=== PATIENT | male | born 1980 | race Caucasian/White ===

== ENCOUNTER → 2018-11-09 14:23 | Outpatient (CLI) | payer BC, SELFPAY ==
[2018-11-09 13:37] VITALS: BMI 31.8
--- NOTE | 2018-11-09 14:26 | RAD_ITS ---
STUDY: X-RAY - PELVIS AND RIGHT HIP REASON FOR EXAM: Male, 38 years old. Worsening right hip pain. No known injury. TECHNIQUE: 3 views of the pelvis and hip. COMPARISON: None. FINDINGS: There is a non-specific bowel gas pattern. There are multiple calcified phleboliths. Normal bilateral iliac wings, sacroiliac joints and visualized sacrum. Normal bilateral superior and inferior pubic rami. Normal pubic symphysis. Normal bilateral ischial tuberosities. Normal visualized femoral head. Normal acetabulum. Normal hip joint. RAD/HIP, UNI W/ Pelvis 2-3 Views IMPRESSION: Normal x-ray examination of the pelvis and hip. Electronically Signed: Hernando Stein, at 14:48 EDT , Service support ,
== END ==
PROVIDERS: Family Provider Family Medicine; PCP Family Medicine; Referring Provider Family Medicine; Visit Provider Family Medicine
DX: M25.551 Pain in right hip (principal)
CPT/HCPCS: 73502

== ENCOUNTER 2018-12-12 18:30 | Outpatient (RCR) | payer BC, SELFPAY ==
[2018-11-09 13:37] VITALS: BMI 31.8
--- NOTE | 2018-11-22 07:39 | HP.PTEVAL ---
Patient's Visit Information CHAPIN DIAZ is a 38 year old M referred to Physical Therapy by Xander Rai DO with a diagnosis of RIGHT HIP PAIN. Date of Evaluation: 11/21/18 Physical Therapist: Julián Marcelino, PT, Cert MDT, OCS - Visit Plan Frequency: 2x /Week Duration: 4 Weeks Plan: PT INTERVNTIONS ROM/FLEXABLITY TO HIP,STRENGTHEING EX'S TO HP,MANUAL THERAPY,MODALTIES - Subjective Findings: This 38 y/o male presents to physical therapy with right pain. Pateint has had right hip pain for about 1 month ,but noticed progressive degrees ROM for example to ER to put on shows. Patient decribed as ache referrs groin to anterior thigh. Patient pain worse with crossing legs,twisting,stairs. Patient pain affects sleeping. Patient pain affect ability to golf. Sitting with rest elevate to walk is very stiff. Patient denies parathesia/tingling but occassional lateral thigh. Alleviating factors rest. Patient pain affects job demands,unable running and gait. Patient pain affects QOL. did x-rays -. SOCAIL: . 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 GAIT: normal regi. NEURO: intact. PALAPTION: unremarkable. PROM: hip flexion 105 degrees,hip abd 45 degrees,ER 65,IR 55. FLEXABILITY: hams mild tight,hip flexors mild tight,piriformis mild tight. MMT: quads/hams 4/5,hip ER/IR 4-/5,Hip abductors,hip adductors 4-/5,hip extension 4-5/, - Special Tests L/S Left Straight Leg Raise: Negative L/S Right Straight Leg Raise: Negative L/S Left Femoral Nerve Tension: Negative L/S Right Femoral Nerve Tension: Negative R Hip Scour: Negative R Hip Quadrant - Intraarticular Pathology: Negative R Hip PEACE - Intraarticular Pathology: Negative R Hip Trendelenberg - Glut Medius: Negative R Hip Trina - IT Band: Negative - Goals Goal 1:: Independant with HEP Goal Time Frame: 4-6 Weeks Goal 2:: Patient to decrease hip pain right by 60% or greater to improve function. Goal Time Frame: 4-6 Weeks Goal 3:: Patient to increase strength of hip abd/flexors by 4/5 to improve function Goal Time Frame: 4-6 Weeks Goal 4:: Patient to improve ability to golf and activity with childern with no pain. Goal Time Frame: 4-6 Weeks Goal 5:: Pateint to improve LFES score by 5 -10 points to improve QOL. Goal Time Frame: 4-6 Weeks - Rehabilitation Potential Physical Therapy Diagnosis: Patient has right hip pain with weakness abductions,flexors with tightness and decrease ROM when pain is more intense affect activities with kids ,golfing and job demnads. Rehabilitation Potential: Good - Anticipated Interventions Patient/Client Instruction: Educate patient on: Condition, Plan of Care For the Purpose of:: To decrease pain, To increase ROM, To increase tolerance to activity/condition/position, To improve ability of physical actions for home/community/work/leisure, To improve health of tissue, To decrease soft tissue restriction, To increase flexibility/ROM, To improve ability to perform tasks related to life management Therapeutic Exercise to Include: Strength training, Balance training, Flexibilty training, Passive ROM, Active ROM Comment: HIP For the Purpose of:: To decrease pain, To increase ROM, To improve muscle performance and motor function, To increase tolerance to activity/condition/position, To improve ability of physical actions for home/community/work/leisure, To improve health of tissue, To decrease soft tissue restriction, To increase flexibility/ROM, To improve ability to perform tasks related to life management Manual Therapy Techniques to Include: Mobilization Comment: HIP For the Purpose of:: To decrease pain, To increase ROM, To improve nutrient delivery to tissue, To increase oxygenation perfusion, To improve health of tissue, To decrease soft tissue restriction TENS: Yes IF ES: Yes Cryotherapy (ice pack, ice massage): Yes Thermo therapy (hot pack): Yes Ultrasound (thermal/non thermal): Yes For the Purpose of:: To decrease pain, To increase ROM, To improve nutrient delivery to tissue, To increase oxygenation perfusion, To improve health of tissue, To decrease soft tissue restriction Thank you for the opportunity to evaluate your patient. For Medicare and Medicare HMO plans, please review the plan of care and approve it. It will need to be FAXED BACK to us at [phone] for Medicare purposes. For Medicare only, by signing this I certify the plan of care. Please let me know if there are questions or concerns regarding this plan of care. Physician Signature: Date:
--- NOTE | 2019-02-16 12:29 | HP.PTDCSUM ---
HP - PT D/C Summary It has been my pleasure to treat CHAPIN DIZA under orders from Xander Rai DO, for the diagnosis of RIGHT HIP PAIN for a total of 6 visit(s). Discharge Date: 12/12/18 Please see the following information for a summary of their discharge status. - Subjective Subjective: Doing well.. - Pain Right Hip Pain Intensity (Out of 10): 0 - Overall Improvement % Improvement: 90 - Objective Objective/Function: STRENGTH HIP 5/5. PROM: WFL. NORAMLA ROMERO - Goals Goal 1:: Independant with HEP Goal Progress: Goal Met Goal 2:: Patient to decrease hip pain right by 60% or greater to improve function. Goal Progress: Goal Met Goal 3:: Patient to increase strength of hip abd/flexors by 4/5 to improve function Goal Progress: Goal Met Goal 4:: Patient to improve ability to golf and activity with childern with no pain. Goal Progress: Goal Met Goal 5:: Pateint to improve LFES score by 5 -10 points to improve QOL. Goal Progress: Goal Met - Plan Plan: D/C TO HEP - D/C Information Discharge Comments: HEP If there are questions or concerns regarding this patient's physical therapy, please feel free to call me at [phone]. Thank you for the referral of this patient. Sincerely, Julián Marcelino, PT, Cert MDT, OCS
== END 2018-12-12 19:00 | disposition home or self-care (01) ==
LOC: PT 18:30
PROVIDERS: Family Provider Family Medicine; PCP Family Medicine; Referring Provider Family Medicine; Visit Provider Family Medicine
DX: M25.551 Pain in right hip (principal); G89.29 Other chronic pain
CPT/HCPCS: 97110; 97161

== ENCOUNTER → 2019-04-21 15:56 | Outpatient (CLI) | payer BC, SELFPAY ==
[2019-04-21 15:16] VITALS: BMI 32.4
--- NOTE | 2019-04-21 15:58 | EKG12_ITS ---
Test Reason : PAIN/TENDERNESS Blood Pressure : / mmHG Vent. Rate : 062 BPM Atrial Rate : 062 BPM P-R Int : 156 ms QRS Dur : 120 ms QT Int : 408 ms P-R-T Axes : 060 010 041 degrees QTc Int : 414 ms Normal sinus rhythm RSR' or QR pattern in V1 suggests right ventricular conduction delay Borderline ECG Confirmed by HUGO LONG, RICHARD ([id number]), legal editor ELLE WHITE ([id number]) on 04/24/2019 1:27:34 PM Referred By: Brian Lee Confirmed By:RICHARD ARIAS MD
== END ==
PROVIDERS: Family Provider Family Medicine; PCP Family Medicine; Referring Provider Nurse Practitioner Family; Visit Provider Nurse Practitioner Family
DX: R07.9 Chest pain, unspecified (principal)
CPT/HCPCS: 93005

== ENCOUNTER → 2019-05-05 08:07 | Outpatient (CLI) | payer BC, SELFPAY ==
[2019-05-05 07:39] VITALS: BMI 32.4
[2019-05-05 10:03] LABS: Absolute Lymphocyte Count 2.46 X10^3/uL (0.83-4.51); Absolute Neutrophil Count 3.5 X10^3/uL (2.0-7.7); Basophil# 0.04 X10^3/uL; Basophil% 0.6 % (0-1); Eosinophil# 0.18 X10^3/uL; Eosinophils% 2.6 % (0-5); Hematocrit 46.4 % (40-54); Hemoglobin 15.7 g/dL (13.0-16.5); Lymphocyte # 2.46 X10^3/ul (4.0); Lymphocyte % 34.9 % (19-41); Mean Corp Hgb Conc 33.8 g/dL (32-36); Mean Corpuscular Hgb 30.8 pg (27.0-32.0); Mean Platelet Vol. 10.7 fl (6.2-12.0); Monocyte% 11.4 % (0-10); NRBC Flagged by Analyzer 0 % (0-5); Neutrophil # 3.53 X10^3/uL (2.7-7.7); Neutrophil % 50.1 % (47-70); Platelet Count 245 K/mm3 (150-450); RBC Distribution Width CV 12.7 % (11.6-14.6); RBC Distribution Width SD 42.3 fl (35.1-43.9)
[2019-05-05 10:28] LABS: ALB/GLOB Ratio 1.2 RATIO (0.9-2.4); AST(SGOT) 26 U/L (15-37); Alanine Aminotransfer ALT/SGPT 49 U/L (16-61); Albumin, Serum 3.9 g/dL (3.2-5.0); Alkaline Phosphatase 56 U/L (45-117); Anion Gap 6 (5-15); BUN 16 mg/dL (7-18); BUN/Creat Ratio 13.2 RATIO (10-20); Calcium,Total 8.9 mg/dL (8.5-10.1); Chloride 106 mmol/L (98-107); Cholesterol 231 mg/dL (200); Creatinine, Serum 1.21 mg/dL (0.70-1.30); EST Glomerular Filtration Rate 70 mL/min (>60); Est Glom Filt Rate - Afr Amer 85 mL/min (>60); Globulin 3.3 g/dL (2.2-4.2); Glucose 97 mg/dL (74-106); High Density Lipoprotein 35 mg/dL; Potassium 4.2 mmol/L (3.5-5.1); Protein, Total 7.2 g/dL (6.4-8.2); Sodium Level 140 mmol/L (136-145); Thyroid Stim Hormone (TSH) 2.01 uIU/mL (0.358-3.74); Triglycerides 251 mg/dL; Very Low Density Lipoprotein 50 mg/dL (5-40)
== END ==
PROVIDERS: Family Provider Family Medicine; PCP Family Medicine; Referring Provider Nurse Practitioner Family; Visit Provider Nurse Practitioner Family
DX: Z00.00 Encounter for general adult medical examination without abnormal findings (principal)
CPT/HCPCS: 36415; 80053; 80061; 84443; 85025

== ENCOUNTER → 2020-05-13 | Outpatient (CLI) | payer BC, SELFPAY ==
[2019-05-05 07:39] VITALS: BMI 32.4
== END | disposition home or self-care (01) ==
LOC: LABSPEC 14:40
PROVIDERS: PCP Family Medicine; Referring Provider Internal Medicine; Visit Provider Internal Medicine
DX: M79.10 Myalgia, unspecified site (principal); R68.83 Chills (without fever)
CPT/HCPCS: 87506; 87635; U0005; U0003

== ENCOUNTER 2020-10-21 19:09 | Emergency (ER) | payer BC, SELFPAY ==
[2019-05-05 07:39] VITALS: BMI 32.4
[2020-10-21 19:10] VITALS: BP 134/73; PULSE 66; RESP 18; TEMP 36.6; O2SAT 99; BMI 32.3
[2020-10-21 19:23] LABS: Red Blood Cells-Urine 0 SEEN /hpf (0-5); White Blood Cells 0 SEEN /hpf (0-5)
[2020-10-21 19:24] LABS: Bacteria 0 SEEN /hpf (None Seen); Mucous, Urine 0 SEEN /hpf (<or=2+)
[2020-10-21 19:25] LABS: Color, Urine Yellow (Yellow); Glucose, Dipstick Normal (Normal); Ketone-Dipstick Negative (Negative); Leukocyte Esterase-Dipstick Negative /ul (Negative); Nitrite-Dipstick Negative (Negative); Occult Blood-Urine Negative /ul (Negative); Protein-Dipstick Negative (Negative); Urine Bilirubin Dipstick Negative (Negative); Urine Clarity Clear (Clear); Urine Urobilinogen Normal (Normal)
[2020-10-21 19:34] LABS: Squamous Epithelial Cells - UA 0-5 SEEN /hpf (0-5)
[2020-10-21 20:36] LABS: Absolute Lymphocyte Count 2.51 X10^3/uL (0.83-4.51); Absolute Neutrophil Count 5.2 X10^3/uL (2.0-7.7); Basophil# 0.05 X10^3/uL; Basophil% 0.6 % (0-1); Eosinophil# 0.13 X10^3/uL; Eosinophils% 1.5 % (0-5); Hematocrit 47.3 % (40-54); Lymphocyte # 2.51 X10^3/ul (0.83-4.51); Lymphocyte % 29.2 % (19-41); Mean Corp Hgb Conc 33.8 g/dL (32-36); Mean Corpuscular Hgb 30.7 pg (27.0-32.0); Mean Corpuscular Volume 90.6 fL (80-94); Mean Platelet Vol. 10.3 fl (6.2-12.0); Monocyte# 0.72 X10^3/uL; Monocyte% 8.4 % (0-10); NRBC Flagged by Analyzer 0 % (0-5); Neutrophil # 5.17 X10^3/uL (2.7-7.7); Platelet Count 279 K/mm3 (150-450); RBC Distribution Width CV 12.7 % (11.6-14.6); RBC Distribution Width SD 41.9 fl (35.1-43.9); Red Blood Count 5.22 M/mm3 (4.6-6.2); White Blood Count 8.6 K/mm3 (4.4-11.0)
[2020-10-21 20:48] LABS: Anion Gap 8 (5-15); BUN 12 mg/dL (7-18); BUN/Creat Ratio 10.8 RATIO (10-20); Calcium,Total 9.1 mg/dL (8.5-10.1); Chloride 103 mmol/L (98-107); Creatinine, Serum 1.11 mg/dL (0.70-1.30); EST Glomerular Filtration Rate 77 mL/min (>60); Est Glom Filt Rate - Afr Amer 93 mL/min (>60); Estimated Creatinine Clearance 89.51 ml/min; Glucose 91 mg/dL (74-106); Sodium Level 140 mmol/L (136-145)
--- NOTE | 2020-10-21 20:51 | CT_ITS ---
INDICATION: lower abd pain x 7 days EXAMINATION: CT Abdomen And Pelvis W/O Contrast Injection TECHNIQUE: Helically acquired images were obtained of the abdomen and pelvis without the use of IV contrast. A radiation dose optimization technique was used for this scan. Oral contrast: None. COMPARISON: None FINDINGS: Evaluation of the solid organs and vascular structures is limited without intravenous contrast. Visualized lung bases: Unremarkable Liver: Diffusely hypodense consistent with fatty liver. Gallbladder: Unremarkable Spleen: Unremarkable Pancreas: Unremarkable Adrenal Glands: Unremarkable Kidneys: Unremarkable Vasculature: Unremarkable GI Tract: Scattered diverticula throughout the colon without evidence of inflammation. Submucosal fat infiltration of the colon. Lymphadenopathy: None Peritoneum: No ascites. Bladder: Unremarkable Reproductive organs: Unremarkable Bones/Soft tissues: Bilateral L5-S1 pars defects with grade 1 anterolisthesis L5 on S1. CT/Abdomen/Pelvis without Cont IMPRESSION: No acute abnormalities in the abdomen or pelvis. Submucosal fat infiltration of the colon is indicative of chronic inflammatory bowel disease. Diverticulosis. Fatty liver. Bilateral L5-S1 pars defects with grade 1 anterolisthesis L5 on S1. Electronically Signed: Oliverio Sanchez MD at 21:56 EDT Tel , Service support ,
--- NOTE | 2020-10-21 20:51 | EX.ED.DYSGE1 ---
HPI History of Present Illness Chief Complaint: Abd Pain Informant: patient Narrative Narrative: Presents persistent lower abdominal pain for the past 7 days. Started on the right side radiates across to his left side. States last couple days pain more at night and will awaken him feeling achy sensations. Today had a bowel movement had increasing pain and nausea. States there is nonbloody stools. He has daily bowel movements. No abdominal surgery history. He is on medication for anxiety. He made appointment with his PCP this coming however due to the increased discomfort today came for evaluation. No allergies. He went to urgent care, sent for rule out appendicitis. Did report start working out again 3 weeks ago has been doing abdominal workouts and felt it was secondary to this and has been monitoring it. No fevers. No urinary symptoms. Patient reports EGD colonoscopy in the past reporting hiatal hernia. Prior similar symptoms: No PFSH PFSH Medical History (Updated 10/21/20 @ 22:[address] Beto Prabhakar DO) Anxiety Bone fracture Frequent headaches Seasonal allergies Vision problems Home Medications citalopram 20 mg tablet See Rx Instructions .ROUTE .COMPLEX #90 tab 05/28/20 [Rx Last Taken Unknown] Allergy/AdvReac Type Severity Reaction Status Date / Time No Known Allergies Allergy Verified 10/21/20 19:12 Family History Uncle Alcoholism Mother Anxiety Blood clot in vein High cholesterol Hypertension Father Anxiety Respiratory disease Hypertension High cholesterol Grandfather Heart disease Grandmother Colon cancer Surgical History History of hand surgery Social History Smoking Status: Never smoker alcohol intake: current alcohol intake frequency: a few times a week substance use type: does not use what type of physical activity do you participate in: bicycling and other details: Jogging ROS ROS ED Constitutional Constitutional ED: Denies chills, fever(s) or sweats Eyes Eyes: Denies change in vision ENT ENT ED: Denies dysphagia or sore throat Cardiovascular Cardiovascular: Denies chest pain, leg edema, palpitations or racing heartbeat Respiratory/Chest Respiratory/Chest: Denies cough, dyspnea or dyspnea on exertion Gastrointestinal Gastrointestinal: Reports abdominal pain; Denies diarrhea, nausea or vomiting Genitourinary Genitourinary ED: Denies dysuria, hematuria or urinary frequency Musculoskeletal Musculoskeletal: Denies back pain, extremity pain or neck pain Integumentary Denies rash or wounds Neurologic Neurologic: Denies headache(s), paresthesias or weakness EXAM Physical Exam Const Vital Signs: 10/21/20 19:10 Temperature 97.8 F Temperature Source Temporal Pulse Rate 66 Respiratory Rate 18 Blood Pressure 134/73 H Blood Pressure Mean 93 Pulse Ox 99 Oxygen Delivery Method Room Air Positive well nourished and well developed General Appearance ED: well developed and NAD HEENT Reports moist mucous membranes normocephalic and atraumatic Eyes PERRL, EOMs intact bilaterally and conjunctivae normal General Eye ED: Yes normal appearance of both eyes Neck no lymphadenopathy and supple General: Negative for tenderness Chest Wall Chest: Negative for tenderness Resp normal respiratory effort and normal air movement Effort and Inspection: symmetric chest movement; Negative for respiratory distress Cardio regular rate, regular rhythm and no murmurs Peripheral Pulses: pulses 2+ throughout GI normal to inspection, nondistended, normoactive bowel sounds GI Narrative: Tender palpation right lower quadrant suprapubic, no guarding or rebound. Small umbilical hernia tender to palpation. No cyanosis in that region. Negative Rovsing's. Palpation: Negative for guarding or rebound tenderness present Back/Spine no CVA tenderness and no thoracic nor lumbar tenderness Extremity normal to inspection General Extremety ED: Negative for edema or tenderness General Extremity: Negative for edema Neuro oriented x3 and no sensory deficits noted Sensorium / Orientation: awake and alert Skin no rashes or lesions noted and no wounds MDM MDM MDM Narrative Medical decision making narrative: Patient lab work obtained in triage normal urine negative. Tender lower quadrants, Noncon CT scan reports no acute findings, there is chronic inflammatory bowel findings from submucosa fatty infiltration. States he is to have chronic recurrent lower abdominal pain in the past. Reevaluation's abdomen is soft. He declines any pain medicines. Discussed with his chronic findings of bowel inflammation to avoid NSAIDs. Use Tylenol. Strict return precautions. All questions answered. Lab Data Attestation: I reviewed the patient's lab results. Labs: Laboratory Results - last 24 hr 10/21/20 10/21/20 10/21/20 19:18 20:28 20:28 WBC 8.6 RBC 5.22 Hgb 16.0 Hct 47.3 MCV 90.6 MCH 30.7 MCHC 33.8 RDW Std Deviation 41.9 RDW Coeff of [place] 12.7 Plt Count 279 MPV 10.3 Immature Gran % (Auto) 0.300 Neut % (Auto) 60.0 Lymph % (Auto) 29.2 [place] % (Auto) 8.4 Eos % (Auto) 1.5 Baso % (Auto) 0.6 Absolute Neuts (auto) 5.2 Absolute Lymphs (auto) 2.51 Nucleated RBC % 0 Sodium 140 Potassium 4.0 Chloride 103 Carbon Dioxide 29.0 Anion Gap 8 BUN 12 Creatinine 1.11 Estim Creat Clear Calc 89.51 Est GFR (MDRD) Af Amer 93 Est GFR (MDRD) Non-Af 77 BUN/Creatinine Ratio 10.8 Glucose 91 Calcium 9.1 Urine Color Yellow Urine Clarity Clear Urine pH 6.0 Ur Specific [place] 1.010 Urine Protein Negative Urine Glucose (UA) Normal Urine Ketones Negative Urine Occult Blood Negative Urine Nitrite Negative Urine Bilirubin Negative Urine Urobilinogen Normal Ur Leukocyte Esterase Negative Urine RBC 0 SEEN Urine WBC 0 SEEN Ur Squamous Epith Cells 0-5 SEEN Urine Bacteria 0 SEEN Urine Mucus 0 SEEN Radiography Diagnostic Testing: Radiology Impression Abdomen/Pelvis CT 10/21/20 20:51 IMPRESSION: No acute abnormalities in the abdomen or pelvis. Submucosal fat infiltration of the colon is indicative of chronic inflammatory bowel disease. Diverticulosis. Fatty liver. Bilateral L5-S1 pars defects with grade 1 anterolisthesis L5 on S1. Electronically Signed: Oliverio Sanchez MD at 21:56 EDT Tel , Service support , Discharge Plan Triage Chief Complaint: Abd Pain ED Provider: Beto Prabhakar Dx/Rx/DC Orders Clinical Impression: Abdominal pain Instructions: ED Unknown Causes of Abdominal ... Prescriptions: No Action citalopram 20 mg tablet See Rx Instructions .ROUTE .COMPLEX Qty: 90 RF: 3 Primary Care Provider: Xander Rai Referrals: Xander Rai, DO [Primary Care Provider] - 3-5 Days if not improving Disposition Disposition: Home, self care
[2020-10-21 22:19] VITALS: BP 128/60; PULSE 61; RESP 16; O2SAT 100
== END 2020-10-21 22:20 | disposition home or self-care (01) ==
PROVIDERS: Emergency Provider Emergency Medicine; PCP Family Medicine
DX: R10.30 Lower abdominal pain, unspecified (principal); Z79.899 Other long term (current) drug therapy
CPT/HCPCS: 74176; 80048; 81001; 85025; 99283; A4216

== ENCOUNTER 2021-07-15 09:05 | Outpatient (CLI) | payer BC, SELFPAY ==
[2021-07-15 12:04] LABS: Absolute Lymphocyte Count 2.36 X10^3/uL (0.83-4.51); Absolute Neutrophil Count 4.8 X10^3/uL (2.0-7.7); Basophil# 0.05 X10^3/uL; Basophil% 0.6 % (0-1); Eosinophil# 0.16 X10^3/uL; Eosinophils% 1.9 % (0-5); Hematocrit 47.8 % (40-54); Hemoglobin 16.1 g/dL (13.0-16.5); Lymphocyte # 2.36 X10^3/ul (0.83-4.51); Lymphocyte % 28.6 % (19-41); Mean Corp Hgb Conc 33.7 g/dL (32-36); Mean Corpuscular Hgb 30.8 pg (27.0-32.0); Mean Corpuscular Volume 91.6 fL (80-94); Mean Platelet Vol. 10.8 fl (6.2-12.0); Monocyte% 9.7 % (0-10); NRBC Flagged by Analyzer 0 % (0-5); Neutrophil # 4.83 X10^3/uL (2.7-7.7); Neutrophil % 58.7 % (47-70); Platelet Count 273 K/mm3 (150-450); RBC Distribution Width SD 43.8 fl (35.1-43.9); Red Blood Count 5.22 M/mm3 (4.6-6.2); White Blood Count 8.2 K/mm3 (4.4-11.0)
[2021-07-15 12:43] LABS: ALB/GLOB Ratio 1.1 RATIO (0.9-2.4); AST(SGOT) 48 U/L (15-37); Alanine Aminotransfer ALT/SGPT 80 U/L (16-61); Alkaline Phosphatase 57 U/L (45-117); Anion Gap 4 (5-15); BUN 13 mg/dL (7-18); BUN/Creat Ratio 10.3 RATIO (10-20); Calcium,Total 9.2 mg/dL (8.5-10.1); Chloride 102 mmol/L (98-107); Creatinine, Serum 1.26 mg/dL (0.70-1.30); EST Glomerular Filtration Rate 66 mL/min (>60); Est Glom Filt Rate - Afr Amer 80 mL/min (>60); Globulin 3.5 g/dL (2.2-4.2); Glucose 102 mg/dL (74-106); Potassium 4.4 mmol/L (3.5-5.1); Protein, Total 7.5 g/dL (6.4-8.2); Sodium Level 137 mmol/L (136-145); T4 Free Direct 1.02 ng/dL (0.76-1.46); Thyroid Stim Hormone (TSH) 2.27 uIU/mL (0.358-3.74)
== END 2021-07-15 23:59 | disposition home or self-care (01) ==
LOC: BIMLAB 09:06
PROVIDERS: PCP Family Medicine; Referring Provider Physician Assistant; Visit Provider Physician Assistant
DX: R03.0 Elevated blood-pressure reading, without diagnosis of hypertension (principal); R00.2 Palpitations; R10.9 Unspecified abdominal pain; F41.9 Anxiety disorder, unspecified
CPT/HCPCS: 36415; 80053; 84439; 84443; 85025

== ENCOUNTER 2021-07-21 09:22 | Outpatient (CLI) | payer BC, SELFPAY | END 2021-07-21 23:59 | disposition home or self-care (01) | LOC: PSN 09:22 | PROVIDERS: PCP Family Medicine; Referring Provider Physician Assistant; Visit Provider Physician Assistant | DX: R00.2 Palpitations (principal); R03.0 Elevated blood-pressure reading, without diagnosis of hypertension | CPT/HCPCS: 93225; 93226 ==

== ENCOUNTER 2021-07-23 09:56 | Emergency (ER) | payer BC, SELFPAY ==
[2021-07-23 09:57] VITALS: BP 143/104; PULSE 78; RESP 14; TEMP 36.8; O2SAT 98; BMI 32.8
--- NOTE | 2021-07-23 10:23 | CT_ITS ---
STUDY: CT ABDOMEN AND PELVIS WITHOUT CONTRAST REASON FOR EXAM: Male, 41 years old. Sudden severe upper abdominal pain. RADIATION DOSAGE (If Supplied By Facility): CTDIvol = ( 11.24 ) mGy, DLP = ( 629.21 ) mGycm TECHNIQUE: Transaxial images were obtained from the dome of the diaphragm to the symphysis pubis without oral contrast, and without intravenous contrast. Sagittal and coronal images were reconstructed. Individualized dose optimization techniques were used for this CT. COMPARISON: Comparison is made with prior study dated 10/21/2020. FINDINGS: Stable mild increased markings in the anterior medial aspect of the right middle lobe suggestive of scarring. Coronary artery calcification. There is decreased attenuation of the liver consistent with steatosis. Normal gallbladder and extrahepatic biliary system. Normal spleen. Normal pancreas. Normal bilateral adrenal glands. Normal right kidney. Normal left kidney. Normal visualized stomach. Normal small intestine. Normal colon. The appendix is visualized and appears normal. Normal abdominal aorta. Normal inferior vena cava. There is borderline retroperitoneal lymphadenopathy with enlarged nodes no greater than 10mm in the short axis diameter. Normal urinary bladder. There are prostatic calcifications. There is a small umbilical hernia containing fat. Small bilateral inguinal hernias containing fat. Minimal anterior listhesis of L5 on S1 with spondylolysis of the pars interarticularis of the L5 vertebrae. CT/Abdomen/Pelvis without Cont IMPRESSION: Fatty infiltration of the liver. Electronically Signed: Hernando Stein MD at 11:11 EDT ,
--- NOTE | 2021-07-23 10:23 | EKG12_ITS ---
Test Reason : CP Blood Pressure : / mmHG Vent. Rate : 060 BPM Atrial Rate : 060 BPM P-R Int : 152 ms QRS Dur : 122 ms QT Int : 408 ms P-R-T Axes : 057 023 026 degrees QTc Int : 408 ms Normal sinus rhythm Normal ECG Confirmed by GENIE LONG, GIANNI ([id number]), fashion editor REJI KAYE ([id number]) on 07/25/2021 8:42:47 AM Referred By: RU Confirmed By:GIANNI PRESCOTT MD
--- NOTE | 2021-07-23 10:32 | EX.ED.DYSGE1 ---
HPI History of Present Illness Chief Complaint: Chest Other Detail of Chief Complaint: Epigastric pain Informant: patient Onset/Context/Timing Onset: Days Context: Gradual Onset Timing: Waxes and wanes Narrative Narrative: Patient presents with 1 week history of epigastric pain. About a week and a half ago he was seen by PCP secondary to some palpitations. Several days later he was throwing a baseball to his son and noted pain to the epigastric region along with increased reflux. He reports going to see Dr. Ortiz this morning who wanted him evaluated with a troponin to rule out heart attack. Patient's primary concern is for hiatal hernia or twisting of his stomach. Patient did just turn in his Holter monitor that he had been given but does not have results back. [facility] Medical History (Updated 07/23/21 @ 12:[address] Sonya Hutchinson MD) Anxiety Bone fracture Frequent headaches Seasonal allergies Vision problems Home Medications blood pressure monitor #1 ea 07/15/21 [Rx Last Taken Unknown] citalopram 40 mg tablet 40 mg .ROUTE DAILY #30 tab 07/21/21 [Rx Last Taken Unknown] hydroxyzine HCl 25 mg tablet 25 mg PO BID PRN #14 tab 07/21/21 [Rx Last Taken Unknown] omeprazole magnesium [Prilosec OTC] 20 mg PO DAILY 07/23/21 [History Last Taken Unknown] Allergy/AdvReac Type Severity Reaction Status Date / Time No Known Allergies Allergy Verified 07/21/21 09:59 Family History Uncle Alcoholism Mother Anxiety Blood clot in vein High cholesterol Hypertension Father Anxiety Respiratory disease Hypertension High cholesterol Grandfather Heart disease Grandmother Colon cancer Surgical History History of hand surgery Social History Smoking Status: Never smoker alcohol intake: current alcohol intake frequency: a few times a week substance use type: does not use what type of physical activity do you participate in: bicycling and other details: Jogging ROS ROS ED Constitutional Constitutional ED: Denies chills or fever(s) Eyes Eyes: Denies change in vision ENT ENT ED: Denies sore throat Cardiovascular Cardiovascular: Reports other Details: Reflux sensation in chest ; Denies chest pain Respiratory/Chest Respiratory/Chest: Denies cough or dyspnea Gastrointestinal Gastrointestinal: Reports abdominal pain; Denies nausea or vomiting Genitourinary Genitourinary ED: Denies dysuria Musculoskeletal Musculoskeletal: Denies back pain or neck pain Integumentary Denies rash Neurologic Neurologic: Denies headache(s) or weakness Allergic/Immunologic Allergic/Immunologic ED: Denies urticaria EXAM Physical Exam Const Vital Signs: 07/23/21 09:57 07/23/21 10:13 Temperature 98.2 F Temperature Source Temporal Pulse Rate 78 Respiratory Rate 14 Respiratory Pattern Normal Blood Pressure 143/104 H Blood Pressure Mean 117 Pulse Ox 98 Oxygen Delivery Method Room Air Positive well nourished and well developed General Appearance ED: well developed HEENT Reports moist mucous membranes Eyes PERRL and EOMs intact bilaterally Neck supple Chest Wall inspection of chest normal and palpation of chest normal Resp normal respiratory effort and clear to auscultation bilaterally Cardio regular rate and regular rhythm GI normal to inspection, nondistended, normoactive bowel sounds and non-tender Palpation: soft Extremity normal to inspection Neuro oriented x3 Sensorium / Orientation: alert Psych mental status grossly normal Skin no rashes or lesions noted MDM MDM MDM Narrative Medical decision making narrative: EKG and lab work obtained. CT scan of the flank ordered. Lab Data Attestation: I reviewed the patient's lab results. Labs: Laboratory Results - last 24 hr 07/23/21 07/23/21 10:35 10:35 WBC 7.8 RBC 5.33 Hgb 16.5 Hct 48.1 MCV 90.2 MCH 31.0 MCHC 34.3 RDW Std Deviation 41.8 RDW Coeff of [place] 12.7 Plt Count 279 MPV 10.4 Immature Gran % (Auto) 0.400 Neut % (Auto) 67.8 Lymph % (Auto) 22.3 [place] % (Auto) 8.3 Eos % (Auto) 0.8 Baso % (Auto) 0.4 Absolute Neuts (auto) 5.3 Absolute Lymphs (auto) 1.74 Nucleated RBC % 0 Sodium 137 Potassium 4.3 Chloride 102 Carbon Dioxide 28.0 Anion Gap 7 BUN 12 Creatinine 1.33 H Estim Creat Clear Calc 73.95 Est GFR (MDRD) Af Amer 75 Est GFR (MDRD) Non-Af 62 BUN/Creatinine Ratio 9.0 L Glucose 100 Calcium 8.8 Total Bilirubin 0.80 Direct Bilirubin 0.13 AST 50 H ALT 74 H Alkaline Phosphatase 62 Troponin I High Sens 5 Total Protein 7.9 Albumin 4.3 Globulin 3.6 Lipase 173 Radiography Diagnostic Testing: Clinical Impression(s) from Imaging Studies Abdomen/Pelvis CT 07/23/21 10:23 IMPRESSION: Fatty infiltration of the liver. Electronically Signed: Hernando Stein MD at 11:11 EDT , EKG Initial EKG: Attestation: I personally reviewed and interpreted this EKG as follows: Interpretation: Sinus Rhythm (Sinus at 60 bpm with no acute ischemia.) Treatment and Re-Evaluation Narrative: On repeat evaluation patient resting comfortably. Test results discussed with him. Lab work is normal including normal troponin. ALT and AST slightly elevated but not significantly changed from recent blood work. CT flank reveals normal stomach with no evidence of hiatal hernia. No acute findings noted. Patient is reassured with these findings and will continue his Prilosec. Discharge Plan Triage Chief Complaint: Chest Other ED Provider: Sonya Hutchinson Dx/Rx/DC Orders Clinical Impression: Abdominal pain, epigastric, Gastroesophageal reflux disease Instructions: ED GERD (Adult) Prescriptions: No Action (DME) blood pressure monitor Kit See Rx Instructions .ROUTE .MEDSUPPLY Qty: 1 RF: 0 citalopram 40 mg tablet 40 mg .ROUTE DAILY Qty: 30 RF: 2 hydroxyzine HCl 25 mg tablet 25 mg PO BID PRN (Reason: anxiety) Qty: 14 RF: 0 omeprazole magnesium [Prilosec OTC] 20 mg Tablet,Delayed Release (Dr/Ec) 20 mg PO DAILY RF: 0 Primary Care Provider: Xander Rai Referrals: Xander Rai, [Primary Care Provider] - 1-2 Weeks Disposition Disposition: Home, Self Care
[2021-07-23 10:48] LABS: Absolute Lymphocyte Count 1.74 X10^3/uL (0.83-4.51); Absolute Neutrophil Count 5.3 X10^3/uL (2.0-7.7); Basophil# 0.03 X10^3/uL; Basophil% 0.4 % (0-1); Eosinophil# 0.06 X10^3/uL; Eosinophils% 0.8 % (0-5); Hematocrit 48.1 % (40-54); Hemoglobin 16.5 g/dL (13.0-16.5); Lymphocyte # 1.74 X10^3/ul (0.83-4.51); Lymphocyte % 22.3 % (19-41); Mean Corp Hgb Conc 34.3 g/dL (32-36); Mean Corpuscular Volume 90.2 fL (80-94); Mean Platelet Vol. 10.4 fl (6.2-12.0); Monocyte# 0.65 X10^3/uL; Monocyte% 8.3 % (0-10); NRBC Flagged by Analyzer 0 % (0-5); Neutrophil % 67.8 % (47-70); Platelet Count 279 K/mm3 (150-450); RBC Distribution Width CV 12.7 % (11.6-14.6); RBC Distribution Width SD 41.8 fl (35.1-43.9); Red Blood Count 5.33 M/mm3 (4.6-6.2); White Blood Count 7.8 K/mm3 (4.4-11.0)
[2021-07-23 11:16] LABS: AST(SGOT) 50 U/L (15-37); Alanine Aminotransfer ALT/SGPT 74 U/L (16-61); Albumin, Serum 4.3 g/dL (3.2-5.0); Alkaline Phosphatase 62 U/L (45-117); Anion Gap 7 (5-15); BUN 12 mg/dL (7-18); Bilirubin, Direct 0.13 mg/dL (0.00-0.30); Calcium,Total 8.8 mg/dL (8.5-10.1); Chloride 102 mmol/L (98-107); Creatinine, Serum 1.33 mg/dL (0.70-1.30); EST Glomerular Filtration Rate 62 mL/min (>60); Est Glom Filt Rate - Afr Amer 75 mL/min (>60); Estimated Creatinine Clearance 73.95 ml/min; Globulin 3.6 g/dL (2.2-4.2); Glucose 100 mg/dL (74-106); Lipase 173 U/L (73-393); Potassium 4.3 mmol/L (3.5-5.1); Protein, Total 7.9 g/dL (6.4-8.2); Sodium Level 137 mmol/L (136-145); Troponin-I HS 5 pg/mL (3.0-78.0)
[2021-07-23 12:07] VITALS: BP 139/97; PULSE 81; RESP 16; O2SAT 99
== END 2021-07-23 12:07 | disposition home or self-care (01) ==
PROVIDERS: Emergency Provider Emergency Medicine; PCP Family Medicine; Visit Provider Emergency Medicine
DX: K21.9 Gastro-esophageal reflux disease without esophagitis (principal); F41.9 Anxiety disorder, unspecified; Z79.899 Other long term (current) drug therapy
CPT/HCPCS: 74176; 80048; 80076; 83690; 84484; 85025; 93005; 99283; A4216

== ENCOUNTER 2021-07-31 09:17 | Outpatient (CLI) | payer BC, SELFPAY | END 2021-07-31 23:59 | disposition home or self-care (01) | PROVIDERS: PCP Family Medicine; Visit Provider Physician Assistant | DX: G47.10 Hypersomnia, unspecified (principal) | CPT/HCPCS: 95806 ==

== ENCOUNTER → 2021-08-26 | Outpatient (CLI) | payer BC, SELFPAY ==
[2021-08-26 15:49] LABS: International Normalized Ratio 1.1; Prothrombin Time (Protime)PT. 13.6 SECONDS (11.7-14.9)
[2021-08-26 15:56] LABS: Erythrocyte Sedimentation Rate 4 mm/hr (0-20)
[2021-08-26 16:12] LABS: CRP 5.26 mg/L (0.0-3.0)
== END | disposition home or self-care (01) ==
LOC: LAB 13:48
PROVIDERS: PCP Family Medicine; Referring Provider Nurse Practitioner Adult Health; Visit Provider Nurse Practitioner Adult Health
DX: K76.0 Fatty (change of) liver, not elsewhere classified (principal)
CPT/HCPCS: 36415; 85610; 85652; 86140

== ENCOUNTER → 2021-08-27 | Outpatient (CLI) | payer BC, SELFPAY ==
[2021-08-27 15:45] LABS: Hemoglobin A1c 5.3 % (3.8-5.6)
[2021-08-27 16:05] LABS: Ferritin 184 ng/mL (26-388); LDH 240 U/L (87-241)
[2021-08-27 16:15] LABS: HIV - WCH Non-Reactive (Nonreactive)
[2021-08-29 14:09] LABS: Anti-Centromere B Ab <0.2 AI (0.0-0.9); Anti-Chromatin <0.2 AI (0.0-0.9); Anti-Jo <0.2 AI (0.0-0.9); Anti-Scleroderma-70 AB <0.2 AI (0.0-0.9); RNP Ab <0.2 AI (0.0-0.9); SJOGREN'S Anti-SS-A test < 0.2 AI (0.0-0.9); SJOGREN'S Anti-SS-B test < 0.2 AI (0.0-0.9); Smith Ab <0.2 AI (0.0-0.9)
[2021-08-29 18:09] LABS: Anti-Mitochondrial AB <20.0 Units (0.0-20.0); Anti-dsDNA Ab <1 IU/mL (0-9)
[2021-08-31 19:07] LABS: Angiotensin Convert Enzyme 31 U/L (14-82); Ceruloplasmin 23.7 mg/dL (16.0-31.0); Cytoplasmic Ab (C-ANCA) <1:20 titer (Neg:<1:20); HEPATITIS B SURFACE AG Negative (Negative); Hepatitis A IgM Antibody Negative (Negative); Hepatitis B Core AB IgM Negative (Negative)
[2021-08-31 20:43] LABS: AFP, Tumor Marker 1.6 ng/mL (0.0-6.9); Anti-Smooth Muscle ABS 4 Units (0-19); Copper, Serum or Plasma 114 ug/dL (69-132); Haptoglobin 105 mg/dL (23-355); Hep C Antibodies <0.1 s/co ratio (0.0-0.9); Perinuclear Ab (P-ANCA) <1:20 titer (Neg:<1:20)
== END | disposition home or self-care (01) ==
LOC: LAB 14:35
PROVIDERS: PCP Family Medicine; Referring Provider Nurse Practitioner Adult Health; Visit Provider Nurse Practitioner Adult Health
DX: K76.0 Fatty (change of) liver, not elsewhere classified (principal)
CPT/HCPCS: 36415; 80074; 82105; 82140; 82164; 82390; 82525; 82728; 83010; 83036; 83516; 83615; 86225; 86235; 86256; 86703

== ENCOUNTER → 2021-09-11 | Outpatient (CLI) | payer BC, SELFPAY ==
--- NOTE | 2021-09-11 09:43 | US_ITS ---
STUDY: ABDOMINAL ULTRASOUND - ELASTOGRAPHY REASON FOR VISIT: Male, 41 years old. Fatty infiltration of the liver. Elevated liver function tests. TECHNIQUE: Liver stiffness measurements were obtained on a [employer] RS 85 ultrasound machine using a CA 1-7 probe following the SRU guidelines. 3 measurements were obtained using a 2-D-SWE method. The IQR/M was 16% suggesting a quality data set. TECHNICAL QUALITY: Adequate. COMPARISON: Comparison is made with prior study done earlier today. FINDINGS: Liver: Diffuse fatty infiltration of the liver. Median liver stiffness measured 9 kPa. US/Elastography Parenchyma/Organ IMPRESSION: Liver stiffness measures 9 kPa compatible with F2-F3 (Mild to moderate liver fibrosis) Metavir score. Electronically Signed: Hernando Stein MD at 10:36 EDT ,
--- NOTE | 2021-09-11 09:44 | US_ITS ---
STUDY: ABDOMINAL ULTRASOUND - RIGHT UPPER QUADRANT REASON FOR VISIT: Male, 41 years old FATTY LIVER . Elevated liver enzymes. TECHNIQUE: Ultrasound evaluation of the right upper quadrant was performed with real-time and static ramirez-scale imaging. TECHNICAL QUALITY: Adequate. COMPARISON: None. FINDINGS: Liver: The liver measures 15.9 cm. There is increased echogenicity consistent with fatty infiltration. Focal fatty sparing is seen in the region of the gallbladder fossa. The bile ducts are within normal limits. There is hepatic color flow. The direction of portal flow is hepatopetal. There is no demonstrated mass lesion. Gallbladder: Normal distended gallbladder. The gallbladder wall measures 2 mm. There is a negative sonographic Mckee''s sign. There is no pericholecystic fluid. There are no gallstones. Common Bile Duct (C.B.D.): The common bile duct measures 3 mm. Pancreas: There is nonvisualization of the pancreas due to overlying bowel gas. Right Kidney: Normal size of the right kidney. The right kidney measures 10 cm x 6.6 x 5.4 cm. Normal renal cortex. The right cortex measures 1.2 cm. There is no demonstrated renal mass or cyst. There is no right hydronephrosis. US/Abdomen Limited IMPRESSION: Diffuse fatty change of the liver. Electronically Signed: Hernando Stein MD at 10:34 EDT ,
== END | disposition home or self-care (01) ==
PROVIDERS: PCP Family Medicine; Visit Provider Nurse Practitioner Adult Health
DX: K76.0 Fatty (change of) liver, not elsewhere classified (principal)
CPT/HCPCS: 76705; 76981

== ENCOUNTER 2021-11-20 06:16 | Day surgery (SDC) | payer BC, SELFPAY ==
--- NOTE | 2021-11-20 | EGD_PTH ---
PATIENT: CHAPIN DIAZ LOC: EN U#:[id number] AGE/SX: 41/M ROOM: RE11/20/[address]: Dr. Isma Marcelino DO : 1980 BED: DIS: 11/20/2021 SPEC #: [id number] RECD: 11/20/21 10:43 STATUS: BONY REAdy #: [id number] SCOT: 11/20/21 00:[address]: Isma Marcelino DEPT: SURGICAL PATHOLOGY RECD BY: Kirit Thompson ENTERED: 11/20/21 10:43 SP TYPE: EGD BIOPSY OT DR: Dr. Xander Ria DO Tissues: A - Duodenum, NOS B - Gastric mucous membrane C - Esophageal mucous membrane Procedures: Special Stain Group II Surgery Specimen Level IV Alcian Blue/PAS (control) HEADER OPERATION: [place] [place] PRE-OP DIAGNOSIS: Fatty liver TISSUE SUBMITTED: A ? Duodenum biopsy, B ? Gastric cardia biopsy, C ? Distal esophagus biopsy MICROSCOPIC DIAGNOSIS A. Duodenum, biopsy: No pathologic change. B. Gastric cardia, biopsy: Mild chronic gastritis. C. Distal esophagus, biopsy: Gastroesophageal junctional mucosa with chronic inflammation. No evidence of goblet cell metaplasia. See comment. AM:mrina 11/21/2021 COMMENT C. Alcian blue/PAS stain with matched control supports the above diagnosis. MICROSCOPIC DESCRIPTION Slides are reviewed. GROSS DESCRIPTION A - Received in fixative is one container labeled with the patient's name and designated duodenum biopsy. The specimen consists of multiple irregular fragments of light reina soft tissue that in aggregate measure 1 x 0.3 x 0.1 cm. The specimen is totally submitted in one cassette. B - Received in fixative is one container labeled with the patient's name and designated gastric cardia. The specimen consists of two irregular fragments of light reina soft tissue that in aggregate measure 0.6 x 0.2 x 0.1 cm. The specimen is totally submitted in one cassette. C - Received in fixative is one container labeled with the patient's name and designated distal esophagus biopsy. The specimen consists of two irregular fragments of light reina soft tissue that in aggregate measure 0.6 x 0.5 x 0.1 cm. The specimen is totally submitted in one cassette. / AM:mirna 11/20/2021 TC:3 CPT: 74742 x3, 54263
[2021-11-20 06:34] VITALS: BP 128/84; PULSE 55; RESP 18; TEMP 36.4; O2SAT 100; BMI 30.4
[2021-11-20] MEDS: Lactated Ringers 1,000 ML 15 ML IV (06:42)
--- NOTE | 2021-11-20 07:19 | HP.PCM_ITS ---
History and Physical Date of Admission: 11/20/21 CHAPIN DIAZ, is a 41 M who presents to the office today for longstanding hx of heartburn. About 6 wks ago he an episode of acid refluxing up to his mouth, as well as abd pain, became anxious so he went to [place] ED. He has had heartburn intermittently for many years, he uses omeprazole with good relief as needed.? He had an EGD probably at least 10 years ago.? He has been told he has a hiatal hernia.? No dysphagia.? No nausea or vomiting.? No abdominal pain since the ED visit. At the ED last month a CT abdomen pelvis without contrast was positive for fatty liver.? CBC was normal.? Slight elevation of AST and ALT, 1:2 ratio.? Thyroid normal.? Primary care repeated some of the labs: AST 50, ALT 74.? His creatinine was slightly elevated at 1.33 with normal BUN. Since the ED visit he is eating better, exercising, took omeprazole daily x 14 days and now he feels better.? Bowels are regular, no diarrhea or constipation, no melena or hematochezia.? Lipids were checked a couple of years ago per the patient and he was told to work on improved diet and exercise.? He has had a nxiety for about 8 years, he takes medication for that. ROS Const Constitutional: Positive for fatigue ENT ENT: No difficulty swallowing Gastro GI: Positive for heartburn; No abdominal pain, belching, bloating, change in bowel habits, change in stool character, coffee ground emesis, constipation, cramping, diarrhea, difficulty swallowing, feeling full early, excessive flatus, incontinent of stools, Vomiting blood/hematemesis, Blood in stool, loose stools, Black,tarry stools, nausea/dyspepsia, pain with swallowing, vomiting or other Musc Musculoskeletal: No joint pain Skin Skin: No yellowing of the eye or itchy eyes Psych Psychiatric: Positive for anxiety and No depression Endo Endocrine: Positive for fatigue Aller/Imm Allergy/Immunologic: No itchy eyes Mick/Lymp Hematologic/Lymphatic: No easy bleeding or easy bruising Exam Const General: cooperative, healthy appearing, no acute distress, well developed and w ell groomed Eyes Eyelids: eyelids normal Conjunctivae: conjunctivae normal Chest Chest palpation & inspection: normal inspection of the chest Resp Effort & Inspection: normal respiratory effort GI Inspection: normal to inspection Palpation: soft, no hepatosplenomegaly and nontender Skin General: no rashes or lesions noted and no jaundice Extrem General: no pedal edema Psych Mental Status: mental status grossly normal Mood: congruent mood Affect: normal affect Quality Reporting Tobacco Screening ([facility] 138) Smoking Status: Never smoker Assessment and Plan Assessment and Plan (1) Fatty liver: ?Status:?Acute ? ? ? Orders:?Orders: ? Elastography Parenchyma/Organ Today ? ? ? CRP Today ? ? ? Prothrombin Time w/INR Today ? ? ? Erythrocyte Sed Rate Today ?Plan - Molly Mejía CHAIR POST MACHINE OPERATOR, CHAIR POST MACHINE OPERATOR-C: 41-year-old male who is seen today for GERD, with incidental finding of fatty liver on recent CT.? We discussed fatty liver and its management.? He has already made significant changes in improving his diet and exercise regimen.? We will get liver elastography to evaluate for any fibrosis, I will call him with that result.? Will check INR, sed rate, CRP today. (2) Gastroesophageal reflux disease: ?Status:?Acute ?Plan - Molly Mejía CHAIR POST MACHINE OPERATOR, CHAIR POST MACHINE OPERATOR-C: He can continue taking omeprazole as needed at this time.? We will get him scheduled for EGD to evaluate for esophagitis, Reed's, gastritis or other.? Follow-up 2 weeks after EGD to discuss biopsy results. I have re-examined the patient. There are no clinical changes since date of exam.
--- NOTE | 2021-11-20 07:44 | OP.EGD_ITS ---
Patient Name: Bony Sanford Procedure Date: 11/20/2021 7:19 AM Date of : 1980 Age: 41 Procedure: Upper GI endoscopy Indications: Epigastric abdominal pain, Suspected esophageal reflux Providers: Isma Marcelino DO Referring MD: Xander Rai Medicines: Monitored Anesthesia Care Patient Profile: This is a 41 year old male. Refer to note in patient chart for documentation of history and physical. Patient has symptoms of acute left upper quadrant abdominal pain, acute epigastric abdominal pain and acute heartburn. Complications: No immediate complications. Procedure: Pre-Anesthesia Assessment: - Prior to the procedure, a History and Physical was performed, and patient medications and allergies were reviewed. The patient is competent. The risks and benefits of the procedure and the sedation options and risks were discussed with the patient. All questions were answered and informed consent was obtained. Patient identification and proposed procedure were verified by the physician in the pre-procedure area. Mental Status Examination: alert and oriented. Airway Examination: normal oropharyngeal airway and neck mobility. Respiratory Examination: clear to auscultation. CV Examination: normal. Prophylactic Antibiotics: The patient does not require prophylactic antibiotics. Prior Anticoagulants: The patient has taken no previous anticoagulant or antiplatelet agents. ASA Grade Assessment: II - A patient with mild systemic disease. After reviewing the risks and benefits, the patient was deemed in satisfactory condition to undergo the procedure. The anesthesia plan was to use moderate sedation / analgesia (conscious sedation). Immediately prior to administration of medications, the patient was re-assessed for adequacy to receive sedatives. The heart rate, respiratory rate, oxygen saturations, blood pressure, adequacy of pulmonary ventilation, and response to care were monitored throughout the procedure. The physical status of the patient was re-assessed after the procedure. After obtaining informed consent, the endoscope was passed under direct vision. Throughout the procedure, the patient's blood pressure, pulse, and oxygen saturations were monitored continuously. The Endoscope was introduced through the mouth, and advanced to the second part of duodenum. The upper GI endoscopy was accomplished without difficulty. The patient tolerated the procedure well. Scope In: 7:31:02 AM Scope Out: 7:36:50 AM Total Procedure Duration Time 0 hours 5 minutes 48 seconds Findings: LA Grade A (one or more mucosal breaks less than 5 mm, not extending between tops of 2 mucosal folds) esophagitis with no bleeding was found 38 to 40 cm from the incisors. Biopsies were taken with a cold forceps for histology. Verification of patient identification for the specimen was done. Estimated blood loss was minimal. Patchy moderate inflammation characterized by erosions and erythema was found in the cardia. Biopsies were taken with a cold forceps for histology. Verification of patient identification for the specimen was done. Estimated blood loss was minimal. A small amount of food (residue) was found in the gastric body. Patchy moderately erythematous mucosa without active bleeding and with no stigmata of bleeding was found in the first portion of the duodenum. Biopsies were taken with a cold forceps for histology. Verification of patient identification for the specimen was done. Estimated blood loss was minimal. Impression: - LA Grade A reflux esophagitis. Biopsied. - Acute gastritis. Biopsied. - A small amount of food (residue) in the stomach. - Erythematous duodenopathy. Biopsied. Recommendation: - Discharge patient to home. - Resume previous diet. - Continue present medications. - Await pathology results. Procedure Code(s): --- Professional --- 41681, Esophagogastroduodenoscopy, flexible, transoral; with biopsy, single or multiple CPT copyright 2017 [employer]. All rights reserved. The codes documented in this report are preliminary and upon dubbing machine operator review may be revised to meet current compliance requirements. Isma Marcelino DO 11/20/2021 7:43:49 AM This report has been signed electronically. Number of Addenda: 1 Note Initiated On: 11/20/2021 7:19 AM Addendum Number: 1 Addendum Date: 02/04/2022 6:15:02 AM MAC was used as sedation for this procedure. Isma Marcelino DO 02/04/2022 6:15:08 AM This report has been signed electronically.
--- NOTE | 2021-11-20 07:44 | OP.CCLET_ITS ---
02/04/2022 Xander Rai Re : Upper GI endoscopy procedure for Bony Sanford Dear Dr. Rai This procedure was performed on October. My impressions and recommendations are as follows: Impressions : - LA Grade A reflux esophagitis. Biopsied. - Acute gastritis. Biopsied. - A small amount of food (residue) in the stomach. - Erythematous duodenopathy. Biopsied. Recommendations : - Discharge patient to home. - Resume previous diet. - Continue present medications. - Await pathology results. My findings are described in the full procedure note, which is enclosed. If I can be of further assistance, please feel free to contact me at . Sincerely, Isma Marcelino, 11/20/2021 7:43:49 AM This report has been signed electronically.
[2021-11-20 07:45] VITALS: BP 106/77; BP 128/84; PULSE 54; RESP 16; TEMP 36.4; O2SAT 97
[2021-11-20 07:50] VITALS: BP 109/71; BP 128/84; PULSE 56; RESP 16; O2SAT 98
[2021-11-20 07:55] VITALS: BP 105/69; BP 128/84; PULSE 53; RESP 16; O2SAT 97
[2021-11-20 08:01] VITALS: BP 123/85; BP 128/84; PULSE 52; RESP 16; TEMP 36.5; O2SAT 99
[2021-11-20 08:11] VITALS: BP 128/84
== END 2021-11-20 08:24 | disposition home or self-care (01) ==
LOC: EN 06:21 → AC 06:21
PROVIDERS: PCP Family Medicine; Referring Provider Family Medicine; Visit Provider Internal Medicine Gastroenterology
PROC: 0DJ08ZZ Inspection of Upper Intestinal Tract, Via Natural or Artificial Opening Endoscopic (ICD-10-PCS; CPT 43235; principal; 2021-11-20 07:10)
DX: K21.00 Gastro-esophageal reflux disease with esophagitis, without bleeding (principal); K29.00 Acute gastritis without bleeding; K31.89 Other diseases of stomach and duodenum
CPT/HCPCS: 43239; 88305; 88313; J7120; J2405

== ENCOUNTER → 2022-01-22 | Outpatient (CLI) | payer BC, SELFPAY ==
--- NOTE | 2022-01-22 10:21 | NM_ITS ---
CLINICAL: 41-year-old male with history of clinical gastroparesis. SEMI-SOLID PHASE 99m Tc SULFUR COLLOID GASTRIC EMPTYING STUDY COMPARISON: None available FINDINGS: The patient was administered 1.0 mCi of 99m Tc sulfur colloid mixed with oatmeal and consumed per os. Image acquisitions in the anterior-posterior projections were obtained for 60 minutes. There is prompt visualization of the stomach. There is no gastroesophageal reflux identified. The T ? emptying was calculated to be 28.04 minutes, (Normal: 12-56 minutes). NM/Gastric Emptying Study IMPRESSION: 1. NORMAL 99m Tc sulfur colloid semi-solid phase (oatmeal) gastric emptying imaging examination. A. There is normal and preserved semi-solid phase gastric emptying compared to normal controls. (Juan Ramon et al, J Nucl Med Tech 38: 186, 2010). Electronically Signed: Storm Morgan, at 21:43 EDT ,
== END | disposition home or self-care (01) ==
PROVIDERS: PCP Family Medicine; Referring Provider Nurse Practitioner Adult Health; Visit Provider Nurse Practitioner Adult Health
DX: K31.89 Other diseases of stomach and duodenum (principal)
CPT/HCPCS: 78264; A9541